=== PATIENT | female | born 1990 | race Caucasian/White ===

== ENCOUNTER 2016-04-22 10:01 | Observation (INO) | payer BC ==
[2016-04-22 10:44] LABS: Urine Color Yellow
[2016-04-22 10:45] LABS: Urine Appearance Slightly Cloudy; Urine Bilirubin Negative (NEGATIVE); Urine Blood 250 /ul (NEGATIVE)
[2016-04-22 10:46] LABS: Urine Bacteria 1+; Urine Nitrite Negative (NEGATIVE); Urine Protein 15 mg/dL (NEGATIVE); Urine Urobilinogen Normal (NORMAL); Urine WBC 0-5 /hpf (0-5)
[2016-04-22 10:47] LABS: Urine Amorphous Sediment Moderate - 2+ (NONE-FEW); Urine Ketone 50 mg/dL (NEGATIVE)
[2016-04-22] MEDS ORDERED: METOCLOPRAMIDE HCL 5 MG/ML VIAL IV ONE (10:50)
[2016-04-22] MEDS ORDERED: NALBUPHINE HCL 20 MG/ML AMPUL IV ONE ×2 (10:50→11:52)
[2016-04-22] MEDS ORDERED: NORMAL SALINE 1,000 ML IV ONE (10:50)
--- NOTE | 2016-04-22 10:52 | ERNOTE ---
Medical Problem HPI - Narrative Date of Service: 04/22/16 - General Chief Complaint: General Assessment Time Seen by Provider: 04/22/16 10:43 Source: patient, family, RN notes reviewed, old records Exam Limitations: no limitations - Immun/Allergies/Home Medications Immunizations: IMMUNIZATION HX Immunizations Up to Date Yes History of Influenza Vaccine No Hx Pneumococcal Vaccination No Allergies/Adverse Reactions: Allergies amoxicillin Allergy (Unknown, Verified 10/27/13 11:15) Other discovered when she was a child Home Medications: HOME MEDICATIONS Vit#96/Ferrous Fum/FA [ S] 1 tab PO DAILY 10/27/13 [Last Taken 10/27/13 0900] Ibuprofen [Motrin] 600 mg PO Q6H PRN #0 tablet 10/31/13 [Last Taken Unknown] oxyCODONE HCL/ACETAMINOPHEN [Percocet 5 MG/325 MG] 1 tab PO Q6H PRN #0 tablet [Last Taken Unknown] oxyCODONE HCL/ACETAMINOPHEN [Percocet 5 MG/325 MG] 2 tab PO Q6H PRN #0 tablet [Last Taken Unknown] - History of Present History Narrative: Deb is a 25 year old female brought to the ED by her for right flank pain that began this morning. She is 19 weeks and 6 days with an EDC of 09/10/16. She reports seeing her OB on 04/19/16 and having a small amount of blood in her urine that day. She was otherwise asymptomatic. She had some suprapubic pressure yesterday morning, but this resolved after a short time. She also reports nausea. Her has so far been uneventful. Date (Duration): 04/22/16 Timing: getting worse Severity: severe Review of Systems - Review of Systems Constitutional: Absent: recent illness, fever, chills EYE: Present: no symptoms reported ENT: Present: no symptoms reported Respiratory: Absent: shortness of breath, cough Cardiology: Absent: chest pain, palpitations, syncope Gastrointestinal/Abdominal: Present: nausea, vomiting. Absent: diarrhea, constipation, abdominal pain Genitourinary: Absent: frequency, dysuria, other - vaginal bleeding Musculoskeletal: Present: back pain. Absent: neck pain, joint pain Skin: Present: no symptoms reported Neurological: Absent: headache, dizziness/light-headedness Endocrine: Present: no symptoms reported Hematologic/Lymphatic: Present: no symptoms reported Psych: Present: no symptoms reported - Patient's Past Medical History Patient History - Medical: No pertinent hx Patient History - Cardiac/Respiratory: No pertinent hx Patient History - Cancer: No Hx of Cancer Patient History - Surgical Procedures: LMP (females 10-50): - LMP (Calendar): 12/05/15 - EDC 09/10/16 - Social History Living Situations: spouse Smoking Status: Never smoker Patient requests Smoking Cessation Consult: No Initiate information on Smoking Cessation: No Alcohol Use: none Physical Exam - Physical Exam General Appearance: Present: wd/wn, alert, moderate distress Neck: Present: normal inspection, nontender, supple, full range of motion Respiratory: Present: no respiratory distress, normal breath sounds, no accessory muscle use, lungs clear Cardiovascular/Chest: Present: regular rate, rhythm, no murmur, normal peripheral pulses Gastrointestinal/Abdominal: Present: normal bowel sounds, tenderness - Right mid abdomen, distended - gravid uterus Back Exam: Present: no vertebral tenderness, CVA tenderness (R). Absent: CVA tenderness (L) Neurological Exam: Present: alert, oriented, normal mood/affect Skin Exam: Present: diaphoresis, pallor ED Progress - Results and Orders Patient's Lab Results:: I have reviewed the patient's lab results. - Vital Signs Patient's Vital Signs:: I have reviewed the patient's vital signs. Vital Signs: Vital Signs 04/22/16 10:10 Pulse Rate 101 H Respiratory 24 H Rate Blood Pressure 158/86 O2 Sat by Pulse 100 Oximetry - CT/Ultrasound CT/Ultrasound Narrative: Technique: Grayscale images of the kidneys and urinary bladder were obtained. Findings: Right kidney: The right kidney measures 11.9 cm in greatest longitudinal dimension. The echogenicity of the renal parenchyma is within normal limits. I do not see evidence for mass or definable shadowing calculus. There is mild to moderate right sided hydronephrosis. Left kidney: The left kidney measures 12.0 cm in greatest longitudinal dimension. The echogenicity of the renal parenchyma is within normal limits. I do not see evidence for mass or hydronephrosis. Urinary bladder: The urinary bladder was completely decompressed the study. The urinary bladder and ureteral jets could not be evaluated on this study. IMPRESSION: 1. MILD TO MODERATE RIGHT SIDED HYDRONEPHROSIS. 2. NORMAL ULTRASOUND LEFT KIDNEY. 3. URINARY BLADDER COMPLETELY DECOMPRESSED FOR THE STUDY. THE URINE BLADDER AND URETERAL JETS COULD NOT BE EVALUATED ON THIS STUDY. Electronically signed by Milton Colorado M.D.. - Progress/Reassessment Chief Complaint: General Assessment Progress:: Unchanged Plan - Plan Plan: Patient continued to have significant flank pain after Nubain 10 mg IVP x2 doses. Has vomited once. Reglan given. Continues to have nausea when her pain becomes severe. Morphine given with some improvement. Has had 1 liter of NS. Contacted Dr. Bruno for observation admit overnight for fluids and IV pain medications as it appears she will not currently do well with outpatient treatment. He and patient are agreeable to plan. A urine culture is pending. FHT 's in the 140's. Departure - Departure Clinical Impression: Ureteral colic, with hydronephrosis in second trimester Vomiting Qualifiers: Vomiting type: unspecified Vomiting Intractability: unspecified Nausea presence : with nausea Qualified Code(s): R11.2 - Nausea with vomiting, unspecified Disposition: [facility] Condition: Fair
[2016-04-22] MEDS ORDERED: NALBUPHINE HCL 20 MG/ML AMPUL ONE ×2 (11:07→11:51)
[2016-04-22] MEDS ORDERED: METOCLOPRAMIDE HCL 5 MG/ML VIAL ONE (11:07)
[2016-04-22] MEDS ORDERED: MORPHINE SULFATE 2 MG/ML DISP.SYRIN IV ONE (13:19)
[2016-04-22] MEDS ORDERED: MORPHINE SULFATE 2 MG/ML DISP.SYRIN ONE (13:24)
[2016-04-22] MEDS ORDERED: RINGERS SOLUTION,LACTATED 1,000 ML IV PRN ×2 (15:06→19:35)
[2016-04-22] MEDS ORDERED: HYDROmorphone HCL 1 MG/ML DISP.SYRIN IV PRN (15:08)
[2016-04-22] MEDS ORDERED: oxyCODONE HCL/ACETAMINOPHEN 1 TAB TABLET PO PRN (15:10)
[2016-04-22] MEDS ORDERED: HYDROmorphone HCL 2 MG/ML VIAL IV PRN (15:19)
[2016-04-22 16:03] LABS: Hemoglobin 13.1 gm/dL (12.5-16.0); Mean Cell Volume 81.6 fl (78-100); Mean Corpuscular Hemoglobin 27.4 pg (27-31); Mean Corpuscular Hgb Conc 33.6 g/dl (32-36); Mean Platelet Volume 9.6 fl (6.0-9.5); Neutrophil # 16.4 K/mm3 (1.3-6.0); Neutrophil % 93.7 % (42-75.0); Platelet Count 264 K/mm3 (150-450); Red Blood Count 4.78 M/mm3 (4.2-5.4); Red Cell Distribution Width 13.1 % (11.5-14.0); White Blood Count 17.5 K/mm3 (4.0-10.5)
[2016-04-22 16:15] LABS: Albumin * 2.8 gm/dl (3.4-5.0); Anion Gap 15.4 mmol/L (6.8-13.8); BUN/Creatinine Ratio 13.8 (9.0-21.6); Bilirubin, Total 0.3 mg/dL (0.0-1.1); Ca. Corrected For Albumin 9.7 mg/dL (8.4-10.2); Calcium * 9.1 mg/dL (7.9-10.9); Carbon Dioxide 22.4 mmol/L (24-32.6); Potassium 3.8 mmol/L (3.4-4.6)
[2016-04-22] MEDS ORDERED: FLU VACC QS2016-17 36MOS UP/PF 60 MCG/0.5 ML DISP.SYRIN IM ONE (16:30)
[2016-04-22] MEDS: NITROFURANTOIN/NITROFURAN MAC 100 MG CAPSULE PO SCH (21:27)
[2016-04-23] MEDS: NITROFURANTOIN/NITROFURAN MAC 100 MG CAPSULE PO SCH (09:15)
[2016-04-23 09:18] LABS: Hematocrit 36.4 % (37.0-47.0); Hemoglobin 12.1 gm/dL (12.5-16.0); Mean Cell Volume 82.7 fl (78-100); Mean Corpuscular Hemoglobin 27.5 pg (27-31); Mean Corpuscular Hgb Conc 33.2 g/dl (32-36); Mean Platelet Volume 9.8 fl (6.0-9.5); Neutrophil # 9.4 K/mm3 (1.3-6.0); Neutrophil % 77.9 % (42-75.0); Platelet Count 230 K/mm3 (150-450); Red Cell Distribution Width 13.3 % (11.5-14.0)
[2016-04-23 10:15] VITALS: BP 110/73
--- NOTE | 2016-04-23 10:54 | DS ---
(1) UTI symptoms Problem: Acute (2) with hydronephrosis in second trimester Problem: Acute (3) Ureteral colic Problem: Acute Description of Stay: Hospital day 1, admitted for observation and pain management due to UTI symptoms , renal colic and right hydronephrosis. Patient received iv hydration, and macrobid for UTI. Her pain resolved and she did not receive additional pain medications overnight. Bladder pressure and urinary frequency resolved. WBC dropped from 17.5 at admission to 12.0 today. Exam: NAD. Abdomen: gravid, soft, non-tender. heart tone 140s. CVA tenderness: resolved. Extremities: no edema or calf tenderness. A: IUP 20 weeks with UTI symptoms, renal colic and right hydronephrosis. Improving and stable. Pain resolved. Plan: will discharge home today. continue macrobid 100 mg bid x 6 days. follow up as needed. Shannan Bruno MD Procedures Performed: none Discharge Disposition: Home self care Disposition: Home self-care Condition: Good Discharge Activity: Activity as tolerated Discharge Diet: General/regular food Referrals: Shannan Bruno MD [Staff Physician] - Additional Patient Instructions (free text): call for increased pain, fever or any concerns. Complete Home Medications List: Complete Home Medication List: Vit#96/Ferrous Fum/FA [ S] 1 tab PO DAILY 10/27/13 Nitrofurantoin/Nitrofuran Mac [Macrobid] 100 mg PO BID #12 capsule 04/23/16
== END 2016-04-23 11:30 | disposition home or self-care (01) ==
LOC: ER 10:01 → MS 14:01
PROVIDERS: ADMIT Obstetrics & Gynecology; ATTEND Obstetrics & Gynecology
DX: N23 Unspecified renal colic (principal); N13.30 Unspecified hydronephrosis; R39.9 Unspecified symptoms and signs involving the genitourinary system; O99.89 Other specified diseases and conditions complicating pregnancy, childbirth and the puerperium; Z3A.20 20 weeks gestation of pregnancy
CPT/HCPCS: 36415; 76770; 80053; 81001; 85025; 87086; 96374; 96375; 99284; G0378

== ENCOUNTER 2016-09-05 04:57 | Inpatient (IN) | payer BC ==
--- OUTSIDE RECORDS SUMMARY | 2016-09-05 05:03 | XMS REPORT | Continuity of Care Document ---
:1990 Author Organization [facility] ([facility]) [place] [address] Phone [phone] Care Team Providers Name Role Phone Provider, No-Primary Care Primary Care Provider Unavailable Source Comments This disclosure is being made pursuant to the Care Everywhere program, applicable federal and state laws, and may not contain all informaitonavailable regarding this patient.[facility] ([facility]) Active Allergies and Adverse Reactions Allergen Noted Date Severity Reactions Comments Amoxicillin 09/23/2013 OTHER As a baby Current Medications Prescription Sig. Disp. Refills Start Date End Date Status VITS Take by mouth. Active W-CA,FE,FA,<1MG, ( VITAMIN PO) Active Problems Problem Noted Date hydronephrosis 09/30/2013 Abnormal ultrasound 09/25/2013 Overview: pyelectasis Social History Tobacco Use Types Packs/Day Years Used Date Never Smoker Alcohol Use Drinks/Week oz/Week Comments No Last Filed Vital Signs Vital Sign Reading Time Taken Blood Pressure 118/66 09/30/2013 1:09 PM CDT Pulse 89 09/30/2013 1:09 PM CDT Temperature 36.6 C (97.9 F) 09/30/2013 1:09 PM CDT Respiratory Rate 26 09/30/2013 1:09 PM CDT Height 1.643 m (5' 4.69") 09/30/2013 1:09 PM CDT Weight 87.544 kg (193 lb) 09/30/2013 1:09 PM CDT Body Mass Index 32.43 09/30/2013 1:09 PM CDT Oxygen Saturation - - Plan of Care Health Maintenance Due Date Last Done Comments Hepatitis B Vaccine (1 of 3 - Primary Series) 1990 HPV Vaccine (1 of 3 - Female/Unknown 3 Dose Series) 2000 Tdap Vaccine 2000 Cervical Cancer Screening 11/07/2007 Lipid Disorder Screening 11/07/2007 MMR Vaccine 11/07/2007 Td Vaccine 11/07/2007 Varicella Vaccine (1 of 2 - Adult - No Evidence of 11/07/2007 Immunity) Influenza Vaccine: Seasonal (#1) 11/15/2015 Results from Last 3 Months Not on file
[2016-09-05] MEDS ORDERED: ceFAZolin SODIUM/DEXTROSE,ISO 2 GM/50 ML BAG IV ONE ×2 (05:10→08:00)
[2016-09-05] MEDS ORDERED: OXYTOCIN 20 UNITS in RINGERS SOLUTION,LACTATED 1,000 ML IV ONE (05:10)
[2016-09-05] MEDS ORDERED: RINGERS SOLUTION,LACTATED 1,000 ML IV PRN (05:10)
[2016-09-05] MEDS: DEXTROSE 5%-LACTATED RINGERS 1,000 ML IV PRN ×2 (06:24→07:35)
--- NOTE | 2016-09-05 09:07 | OR ---
Operative Report - Dictated Report Narrative: Indication: 25-year-old 3 para 1 at 39-2/7 weeks with prior section desires repeat low transverse section. Pre Operative Diagnosis: 39-2/7 week intrauterine , prior section, desires repeat section Post Operative Diagnosis: Same. Procedure: Repeat low transverse section. Surgeon: Jonel Payne DO Air Launch Weapons Technician: none Anesthesia: Spinal, TAP block Estimated Blood Loss: 200 mL Urine Output: 125 mL clear urine Fluids Replacement: 1300 mL of crystalloid Drains: Blanco to gravity Surgical Complications: None Specimens: Placenta to freezer Findings: Male born at 0813 on 09/05/2017 in cephalic presentation with Apgars 8 and 9, weighing 3642 g. Normal uterus, tubes, ovaries Technique: The patient was taken to the operating room and placed in dorsal supine position with a left lateral tilt. After adequate spinal anesthesia, blanco catheter inserted, SCDs placed, and 2 g of Ancef given preoperatively, the abdominal cavity was entered using sharp and blunt dissection. Two rolled laps were placed in the pericolic gutters on either side of the uterus. A transverse incision was made in the lower uterine segment and extended laterally and upwardly with digital traction. Clear fluid was noted upon amniotomy. The was delivered easily. The cord was clamped and cut and was handed off to awaiting peditrician. The placenta was allowed to deliver spontaneously. The uterus was cleared of clot and debris. Uterine incision was closed with 0 Vicryl using a running stitch. A second imbricating layer was placed. Excellent hemostasis was noted. The rolled laps were removed from the abdominal cavitiy. The peritoneum was closed with a running 3- 0 Monocryl. The same suture was used to approximate the rectus and pyramidalis muscles. The fascia was closed with a running 0 Vicryl. The subcutaneous layer was closed with a running 3-0 Monocryl. The same suture was used to approximate the subdermal layer. The skin was closed with a running 4-0 Monocryl and Dermabond. Sponge, lap, needle, and instrument count were correct x 2. Disposition: To post anesthesia care unit in good condition
[2016-09-05] MEDS ORDERED: SIMETHICONE 80 MG TAB.CHEW PO PRN (09:11)
[2016-09-05] MEDS ORDERED: ONDANSETRON HCL/PF 2 MG/ML VIAL IV PRN (09:11)
[2016-09-05] MEDS ORDERED: SENNOSIDES 8.6 MG TABLET PO PRN (09:11)
[2016-09-05] MEDS ORDERED: oxyCODONE HCL/ACETAMINOPHEN 1 TAB TABLET PO PRN (09:11)
[2016-09-05] MEDS ORDERED: BISACODYL 10 MG SUPP.RECT RC PRN (09:11)
[2016-09-05] MEDS: IBUPROFEN 800 MG TABLET PO PRN ×2 (11:27→20:17)
[2016-09-05] MEDS: oxyCODONE HCL/ACETAMINOPHEN 1 TAB TABLET PO PRN ×3 (11:27→20:17)
[2016-09-05] MEDS: ENOXAPARIN SODIUM 40 MG/0.4 ML SYRG SC SCH (17:05)
[2016-09-05] MEDS: DOCUSATE SODIUM 100 MG CAPSULE PO SCH (20:17)
[2016-09-05] MEDS ORDERED: RHO(D) IMMUNE GLOBULIN 300 MCG DISP.SYRIN IM ONE (22:00)
[2016-09-06] MEDS ORDERED: RHO(D) IMMUNE GLOBULIN 300 MCG DISP.SYRIN IM ONE (00:43)
[2016-09-06] MEDS: oxyCODONE HCL/ACETAMINOPHEN 1 TAB TABLET PO PRN ×3 (01:11→16:28)
[2016-09-06] MEDS: IBUPROFEN 800 MG TABLET PO PRN ×3 (02:22→16:28)
--- NOTE | 2016-09-06 14:28 | PN ---
Subjective - Date and Time Seen Date: 09/06/16 Time: 14:27 Objective - Vitals Vitals: Last Vital Signs Temp 36.7 C 09/06/16 13:23 Pulse 77 09/06/16 13:23 Resp 18 09/06/16 13:23 BP 127/78 09/06/16 13:23 Pulse Ox 98 09/06/16 13:23 Patient denies complaints. Tolerating regular diet. Ambulating without difficulty. Pain well controlled. Lochia wnl. Abdomen - soft, appropriately tender Incision - clean, dry, intact Uterus - firm, at umbilicus -1 No calf tenderness Impression: Post op day #1 s/p repeat section. Plan: Continue routine post-operative/ care Cauti Physician Documentation - Urinary Catheter Management Uretheral (Gautam) Date of Insertion: 09/05/16 Time of Insertion: 08:00 Date of Removal: 09/05/16 Time of Removal: 20:00
[2016-09-06] MEDS: PRENATAL VIT#96/FERROUS FUM/FA 1 TAB TABLET PO SCH (15:26)
[2016-09-06] MEDS: DOCUSATE SODIUM 100 MG CAPSULE PO SCH ×2 (15:26→21:53)
[2016-09-06] MEDS: ENOXAPARIN SODIUM 40 MG/0.4 ML SYRG SC SCH (16:22)
[2016-09-07] MEDS: oxyCODONE HCL/ACETAMINOPHEN 1 TAB TABLET PO PRN ×3 (01:08→16:24)
[2016-09-07] MEDS: IBUPROFEN 800 MG TABLET PO PRN ×3 (01:08→16:23)
[2016-09-07] MEDS: DOCUSATE SODIUM 100 MG CAPSULE PO SCH ×2 (08:32→20:18)
[2016-09-07] MEDS: PRENATAL VIT#96/FERROUS FUM/FA 1 TAB TABLET PO SCH (10:11)
--- NOTE | 2016-09-07 12:24 | PN ---
Subjective - Date and Time Seen Date: 09/07/16 Time: 12:23 Objective - Vitals Vitals: Last Vital Signs Temp 36.7 C 09/07/16 08:15 Pulse 96 09/07/16 08:15 Resp 20 09/07/16 08:15 BP 136/76 09/07/16 08:15 Pulse Ox 98 09/07/16 08:15 Patient denies complaints. Ambulating well. Tolerating regular diet. Pain well controlled. Lochia wnl. Abdomen - soft, appropriately tender Incision - clean, dry, intact Uterus - firm, at umbilicus -2 No calf tenderness Impression: Post op day #2 s/p repeat section. Plan: Continue routine post-operative/ care Cauti Physician Documentation - Urinary Catheter Management Uretheral (Gautam) Date of Insertion: 09/05/16 Time of Insertion: 08:00 Date of Removal: 09/05/16 Time of Removal: 20:00
[2016-09-07] MEDS: ENOXAPARIN SODIUM 40 MG/0.4 ML SYRG SC SCH (16:26)
[2016-09-08] MEDS: oxyCODONE HCL/ACETAMINOPHEN 1 TAB TABLET PO PRN ×2 (00:45→09:18)
[2016-09-08] MEDS: IBUPROFEN 800 MG TABLET PO PRN ×2 (00:45→09:19)
[2016-09-08 08:50] VITALS: BP 140/63
--- NOTE | 2016-09-08 09:02 | DS ---
Procedures Performed: see notes below List Procedures: Repeat low cervical transverse section Discharge Disposition: Home self care Disposition: Home self-care Condition: Good Discharge Activity: No Lifting Discharge Diet: General/regular food Additional Patient Instructions (free text): Your 2 week post op follow up appointment is scheduled on September 21 at 2 :15 p.m. Please call [facility] or [facility] [phone] with any problems or concerns. Thank you for choosing [facility] for your special delivery of Jaret Castanon on August at 8:13 a.m. 8 pounds 0.4 ounces 20 inches long Jaret's follow up appointment Please call [facility] with any problems or concerns Jaret's blood type is A positive Jaret passed his hearing screen Prescriptions (Any new or edited meds): Ibuprofen [Motrin] 200 - 800 mg PO Q6H PRN #100 tab PRN Reason: Pain oxyCODONE HCL/ACETAMINOPHEN [Percocet 5 MG/325 MG] 1 tab PO Q4H PRN #20 tablet PRN Reason: Moderate Pain Complete Home Medications List: Complete Home Medication List: Vit#96/Ferrous Fum/FA [ S] 1 tab PO DAILY 10/27/13 Ibuprofen [Motrin] 200 - 800 mg PO Q6H PRN #100 tab 09/07/16 oxyCODONE HCL/ACETAMINOPHEN [Percocet 5 MG/325 MG] 1 tab PO Q4H PRN #20 tablet 09/07/16
[2016-09-08] MEDS: DOCUSATE SODIUM 100 MG CAPSULE PO SCH (09:18)
[2016-09-08] MEDS: PRENATAL VIT#96/FERROUS FUM/FA 1 TAB TABLET PO SCH (12:15)
== END 2016-09-08 10:50 | disposition home or self-care (01) | DRG 766 ==
LOC: OB 04:57
PROVIDERS: ADMIT Obstetrics & Gynecology; ATTEND Obstetrics & Gynecology
PROC: 4A1HXCZ Monitoring of Products of Conception, Cardiac Rate, External Approach (ICD-10-PCS; 2016-09-05)
PROC: 10D00Z1 Extraction of Products of Conception, Low, Open Approach (ICD-10-PCS; principal; 2016-09-05 08:00)
DX: O69.81X0 Labor and delivery complicated by cord around neck, without compression, not applicable or unspecified (principal); O99.824 Streptococcus B carrier state complicating childbirth; Z3A.37 37 weeks gestation of pregnancy; Z37.0 Single live birth
CPT/HCPCS: 59025; 59510; 85460; J2790

== ENCOUNTER 2019-10-01 05:00 | Inpatient (IN) ==
[2019-10-01] MEDS: RINGER'S SOLUTION,LACTATED 1,000 ML IV PRN ×2 (05:30→06:34)
[2019-10-01] MEDS ORDERED: OXYTOCIN 20 UNITS in RINGER'S SOLUTION,LACTATED 1,000 ML IV ONE (05:32)
--- NOTE | 2019-10-01 07:15 | ANES ---
Anesthesia Pre Procedure Eval Vitals/Labs: Last Vital Signs Temp 36.5 C 10/01/19 05:35 Pulse 83 10/01/19 05:35 Resp 16 10/01/19 05:35 BP 130/77 10/01/19 05:35 Pulse Ox 97 10/01/19 05:35 HOME MEDICATIONS Vits96/Iron Fum/Folic [ S] 1 tab PO DAILY 10/27/13 [Last Taken 09/04/16] Allergies/Adverse Reactions: Allergies Allergy/AdvReac Type Severity Reaction Status Date / Time amoxicillin Allergy Unknown Other Verified 10/01/19 05:36 - Planned Procedure Planned Procedure: Repeat CSection poss abdominal scar rev John Paul Salp Medication List Reviewed:: Yes Allergies Verified: Yes Medical History (Last Reviewed 10/01/19 @ 07:14 by Lenny Gonzalez CRNA) BMI 40.0-44.9, adult (Chronic) Thyromegaly Onset Date: Unknown Body piercing Onset Date: Unknown Rh negative, maternal Onset Date: Unknown Wears glasses Onset Date: Unknown Hydronephrosis Onset Date: ~04/2016 right kidney-w/kidney stone Kidney stones Onset Date: ~04/2016 right kidney Oligohydramnios Onset Date: ~2013 Spontaneous Onset Date: 08/13/15 Surgical History (Last Reviewed 10/01/19 @ 07:14 by Lenny Gonzalez CRNA) Previous section (Chronic) Previous section Onset Date: 10/18/13 10/18/13-Dr. Dejesus-non reassuring tracing, 09/05/16-Rpt Family History (Last Reviewed 10/01/19 @ 07:14 by Lenny Gonzalez CRNA) Father Diabetes Insulin Dependent Grandfather Rheumatic fever caused cardiac issues-current pacemaker Grandfather Myocardial infarction Mother Alive and well - Family Anesthesia History Family History:: no untoward family reactions to anesthesia, no familial bleeding tendencies, no family history of clotting disorders, no family history of premature - Airway/Neck/Teeth Within Normal Limits:: Yes Teeth Condition: intact Mallampatti Score: 3 Thyromental (T-M) distance: > 6 cm Mandibulo Hyoid distance: > 3 cm - Respiratory Respiratory Physical: lungs clear Smoking Status: Never smoker Discussed smoking cessation including day of surgery: No Sleep Apnea currently treated: No Sleep Apnea by current assessment: No Discussed Risks/Treatment of ELKE: No - Cardiovascular Tolerate Activity: Good Heart Sounds: S1 & S2, Regular - Gastrointestinal NPO since: mn - Anesthesia Assessment and Plan ASA Class: PS, II Anesthesia Type Plan: Block - Bilateral ultrasound guided TAP blocks for postop analgesia, Spinal
[2019-10-01] MEDS ORDERED: ONDANSETRON HCL/PF 2 MG/ML VIAL ONE (07:17)
[2019-10-01] MEDS ORDERED: fentaNYL CITRATE/PF 50 MCG/ML AMPUL ONE (07:17)
[2019-10-01] MEDS ORDERED: BUPIVACAINE HCL/EPINEPHRINE/PF 30 ML VIAL IJ ONE (07:17)
[2019-10-01] MEDS ORDERED: PROPOFOL VIAL IV ONE (07:17)
[2019-10-01] MEDS ORDERED: KETOROLAC TROMETHAMINE 30 MG/ML VIAL ONE (07:17)
[2019-10-01] MEDS ORDERED: GLYCOPYRROLATE 0.2 MG/ML VIAL ONE (07:18)
[2019-10-01] MEDS ORDERED: NEOSTIGMINE METHYLSULFATE 1 MG/ML VIAL ONE (07:18)
[2019-10-01] MEDS ORDERED: ceFAZolin SODIUM 1 GM VIAL ONE (07:45)
[2019-10-01] MEDS ORDERED: IBUPROFEN 800 MG TABLET PO PRN (09:33)
[2019-10-01] MEDS ORDERED: SENNOSIDES 8.6 MG TABLET PO PRN (09:33)
[2019-10-01] MEDS ORDERED: ONDANSETRON HCL/PF 2 MG/ML VIAL IV PRN (09:33)
[2019-10-01] MEDS ORDERED: BISACODYL 10 MG SUPP.RECT RC PRN (09:33)
[2019-10-01] MEDS ORDERED: SIMETHICONE 80 MG TAB.CHEW PO PRN (09:33)
--- NOTE | 2019-10-01 09:39 | OR ---
Operative Report - Dictated Report Narrative: Indication: 28-year-old 4 para 2 at 39-4/7 weeks with prior section x2 desiring permanent sterilization presents for repeat section with bilateral salpingectomy. status: Planned Pre Operative Diagnosis: 39-4/7-week intrauterine . Prior section x2. Desires permanent sterilization. Morbid obesity (BMI 41.9). Post Operative Diagnosis: Same. Procedure: Repeat low transverse section. Bilateral salpingectomy Surgeon: Jonel Payne DO Lead Caster Helper: OR Staff Anesthesia: Spinal, TAP block Estimated Blood Loss: 300 mL Urine Output: 100 mL clear urine Fluids Replacement: 1600 mL of crystalloid Drains: Blanco to gravity Surgical Complications: None Specimens: Placenta to freezer Findings: Male born at 0811 on 10/01/2020 with Apgars 9 and 9, weighing 4003 g in cephalic presentation. Normal uterus, tubes, ovaries Technique: The patient was taken to the operating room and placed in dorsal supine position with a left lateral tilt. After adequate spinal anesthesia, blanco catheter inserted, SCDs placed, and 2 g of Ancef given preoperatively, the abdominal cavity was entered using sharp and blunt dissection. Two rolled laps were placed in the pericolic gutters on either side of the uterus. A transverse incision was made in the lower uterine segment and extended laterally and upwardly with digital traction. Clear fluid was noted upon amniotomy. The was delivered atraumatically. The cord was clamped and cut and was handed off to awaiting manager convention. The placenta was allowed to deliver spontaneously. The uterus was cleared of clot and debris. Uterine incision was closed with 0 Vicryl using a running stitch. A second imbricating layer was placed. A [id number] stitch was placed in the midline of the incision to provide excellent hemostasis. The right fallopian tube was identified and followed out to the fimbriated endometriosis. The mesosalpinx was coagulated with Kleppinger's and across the tube approximately 2 cm from the cornual region. The fallopian tube was excised and sent to pathology. The exact same was done on the patient's left side. Excellent hemostasis was obtained with a combination of Kleppinger and bipolar cautery. The rolled laps were removed from the abdominal cavitiy. The peritoneum was closed with a running 3-0 Monocryl. The same suture was used to approximate the rectus and pyramidalis muscles. The fascia was closed with a running 0 Vicryl. The subcutaneous layer was closed with a running 3-0 Monocryl. The same suture was used to approximate the subdermal layer. The skin was closed with a running 4-0 Monocryl and Dermabond. Sponge, lap, needle, and instrument count were correct x 2. Disposition: To post anesthesia care unit in good condition History for MU History for MU Definition: * The number of deliveries resulting in a live the patient experienced prior to current hospitalization * The previous delivery of live twins or any live multiple gestation is considered one live event. *If primagravida or nulliparous is documented select zero for the number of previous live births. Live Events: Live Events: 2
--- NOTE | 2019-10-01 09:46 | ANES ---
Post Anesthesia Discharge - Transfer of Care Transfer of Care handoff given to nurse: Yes - Discharge from PACU Discharge from PACU when meets criteria: Yes - Discharge to ASU Discharge to ASU-no complications/pt stable: Yes
--- NOTE | 2019-10-01 09:49 | ANES ---
Anesthesia Procedure Note Procedure Note: ANESTHESIA PROCEDURE NOTE Date of Procedure: 10/01/2019. Time of procedure: 929. Performed by: Lenny Gonzalez CRNA Chainman: None. Preprocedure diagnosis: Repeat . Post procedure diagnosis: Same. Procedure: Bilateral ultrasound-guided transversus abdominis plane block for postop analgesia. Indications: The patient is a 28-year-old female post section. Findings: See below. Details of the procedure: ChloraPrep was used on the patient's abdomen and the procedure was performed under sterile technique. The right abdominal fascial layer between the internal oblique muscle and the transversus abdominis muscles was identified under ultrasound guidance. A 21-gauge 4 inch block needle was inserted under ultrasound guidance to the target fascial plane. 15 mL's of 0.5% bupivacaine plus epinephrine 1:200,000 was injected after negative aspiration for blood. The needle was removed intact and the procedure was then repeated at the left side. No complications were noted. The images were retained in the hospital medical database. EBL: Minimal. Fluids: N/A. Specimen: N/A. Post procedure condition: The patient tolerated the procedure well. No complications were noted. Thank you for this consultation. Lenny Gonzalez CRNA
[2019-10-01] MEDS: oxyCODONE HCL/ACETAMINOPHEN 1 TAB TABLET PO PRN ×3 (10:23→22:52)
[2019-10-01] MEDS ORDERED: RHO(D) IMMUNE GLOBULIN 1,500 UNIT SYRINGE IM ONE (10:42)
--- NOTE | 2019-10-01 11:16 | ANES ---
Post Anesthesia Assessment - Vital Signs Vitals: Last Vital Signs Temp 36.4 C 10/01/19 09:53 Pulse 75 10/01/19 10:37 Resp 18 10/01/19 10:37 BP 129/61 10/01/19 10:37 Pulse Ox 100 10/01/19 10:37 Airway Patency: Normal - Mental Status Level Of Consciousness: Awake - Pain Level Pain Score: 0 - N/V Assessment Nausea/Vomiting Presence: None Dehydration:: No
[2019-10-01] MEDS: IBUPROFEN 800 MG TABLET PO PRN (15:35)
[2019-10-01] MEDS: ENOXAPARIN SODIUM 40 MG/0.4 ML SYRG SC SCH (16:39)
[2019-10-01] MEDS: DOCUSATE SODIUM 100 MG CAPSULE PO SCH (22:52)
[2019-10-02] MEDS ORDERED: ceFAZolin SODIUM 1 GM VIAL IV PRN (06:00)
[2019-10-02] MEDS: DOCUSATE SODIUM 100 MG CAPSULE PO SCH ×3 (06:35→20:00)
[2019-10-02] MEDS: IBUPROFEN 800 MG TABLET PO PRN ×3 (06:35→23:46)
[2019-10-02] MEDS: oxyCODONE HCL/ACETAMINOPHEN 1 TAB TABLET PO PRN ×5 (06:35→23:46)
[2019-10-02] MEDS: PRENATAL VITS96/IRON FUM/FOLIC 1 TAB TABLET PO SCH ×2 (08:16→10:35)
--- NOTE | 2019-10-02 08:46 | PN ---
Subjective - Date and Time Seen Date: 10/02/19 Time: 08:46 Objective - Vitals Vitals: Last Vital Signs Temp 36.8 C 10/02/19 06:54 Pulse 95 10/02/19 06:54 Resp 18 10/02/19 06:54 BP 120/72 10/02/19 06:54 Pulse Ox 98 10/02/19 06:54 Patient denies complaints. Tolerating regular diet. Ambulating without difficulty. Pain well controlled. Lochia wnl. Abdomen - soft, appropriately tender Incision -clean, dry, intact uterus - firm, at umbilicus -1 no calf tenderness Impression: Post op day #1 s/p repeat section. Plan: Continue routine post-operative/ care Cauti Physician Documentation - Urinary Catheter Management Urethral (Gautam) Date of Insertion: 10/01/19 Time of Insertion: 07:45 Date of Removal: 10/01/19 Time of Removal: 20:00
[2019-10-02] MEDS: ENOXAPARIN SODIUM 40 MG/0.4 ML SYRG SC SCH (16:25)
[2019-10-03] MEDS: oxyCODONE HCL/ACETAMINOPHEN 1 TAB TABLET PO PRN ×4 (04:29→22:02)
[2019-10-03] MEDS: PRENATAL VITS96/IRON FUM/FOLIC 1 TAB TABLET PO SCH ×2 (07:33→13:25)
[2019-10-03] MEDS: DOCUSATE SODIUM 100 MG CAPSULE PO SCH ×3 (07:33→22:02)
[2019-10-03] MEDS: IBUPROFEN 800 MG TABLET PO PRN ×3 (07:34→22:03)
--- NOTE | 2019-10-03 08:11 | PN ---
Subjective - Date and Time Seen Date: 10/03/19 Time: 08:10 Objective - Vitals Vitals: Last Vital Signs Temp 36.5 C 10/03/19 07:17 Pulse 82 10/03/19 07:17 Resp 18 10/03/19 07:17 BP 116/70 10/03/19 07:17 Pulse Ox 96 10/03/19 07:17 Patient denies complaints. Ambulating well. Tolerating regular diet. Pain well controlled. Lochia wnl. Abdomen - soft, appropriately tender Incision -clean, dry, intact uterus - firm, at umbilicus -2 no calf tenderness Impression: Post op day #2 s/p repeat section with bilateral salpingectomy. Plan: Continue routine post-operative/ care Cauti Physician Documentation - Urinary Catheter Management Urethral (Gautam) Date of Insertion: 10/01/19 Time of Insertion: 07:45 Date of Removal: 10/01/19 Time of Removal: 20:00
[2019-10-03] MEDS: ENOXAPARIN SODIUM 40 MG/0.4 ML SYRG SC SCH (16:07)
[2019-10-04] MEDS: IBUPROFEN 800 MG TABLET PO PRN (07:50)
[2019-10-04] MEDS: oxyCODONE HCL/ACETAMINOPHEN 1 TAB TABLET PO PRN (07:50)
[2019-10-04] MEDS: DOCUSATE SODIUM 100 MG CAPSULE PO SCH (08:52)
[2019-10-04] MEDS: PRENATAL VITS96/IRON FUM/FOLIC 1 TAB TABLET PO SCH (08:52)
--- NOTE | 2019-10-04 10:42 | PN ---
Subjective - Date and Time Seen Date: 10/04/19 Time: 10:41 Objective - Vitals Vitals: Last Vital Signs Temp 36.5 C 10/04/19 02:57 Pulse 84 10/04/19 02:57 Resp 20 10/04/19 02:57 BP 122/76 10/04/19 02:57 Pulse Ox 98 10/04/19 02:57 Patient denies complaints. Ambulating without difficulty. Tolerating regular diet. Pain well controlled. Lochia wnl. Abdomen - soft, appropriately tender Incision -clean, dry, intact uterus - firm, at umbilicus -3 no calf tenderness Impression: Post op day #3 s/p repeat section. Bilateral salpingectomy Plan: Routine discharge instructions Cauti Physician Documentation - Urinary Catheter Management Urethral (Gautam) Date of Insertion: 10/01/19 Time of Insertion: 07:45 Date of Removal: 10/01/19 Time of Removal: 20:00
[2019-10-04 11:30] VITALS: BP 126/67
== END 2019-10-04 14:00 | disposition home or self-care (01) | DRG 785 ==
LOC: OB 05:00
PROVIDERS: ADMIT Obstetrics & Gynecology; ATTEND Obstetrics & Gynecology
CPT/HCPCS: 59025; 85460; 88302; 88888; J2405; J2790